=== PATIENT | male | born 1965 | race African-American/Black ===

== ENCOUNTER → 2018-10-15 | Emergency (ER) | payer OTHER ==
[~2018-10-15] VITALS: Ht 182.9 cm; Wt 81.6 kg
[2018-10-15 16:43] VITALS: BP 143/90
--- NOTE | 2018-10-15 20:54 | Emergency Room Report ---
History of Present Illness General Chief Complaint: Pain Source: Patient Present Illness HPI This patient left prior to evaluation by medical provider. Allergies: Coded Allergies: PENICILLINS (Verified Allergy, Unknown, 10/15/18) Nursing Documentation-[facility] Past Medical History: No History, Except For Physical Exam Vital Signs Date Time Temp Pulse Resp B/P (MAP) Pulse Ox O2 Delivery O2 Flow Rate FiO2 10/15/18 16:36 98.2 95 16 145/92 95 Room Air Medical Decision Making PA Attestation Dr. Mcghee is my supervising Physician whom patient management has been discussed with. ER Course This patient left prior to evaluation by medical provider. Last Vital Signs Date Time Temp Pulse Resp B/P (MAP) Pulse Ox O2 Delivery O2 Flow Rate FiO2 10/15/18 16:43 98.1 78 20 143/90 96 Room Air Disposition: LEFT W/OUT BEING SEEN Condition: Unknown Referrals: [facility],REFERRING (PCP) Sapna Mason Oct 15, 2018 20:54
== END | disposition left against medical advice (07) ==
LOC: EMR 17:09
DX: M25.551 Pain in right hip (principal); Z53.21 Procedure and treatment not carried out due to patient leaving prior to being seen by health care provider

== ENCOUNTER 2018-11-01 20:09 | Emergency (ER) | payer OTHER ==
[~2018-11-01] VITALS: Ht 182.9 cm; Wt 77.1 kg
--- NOTE | 2018-11-01 20:40 | NUR ---
ER Nurse Note: Pt walked in c/o right hip to groin pain d/t fall 10/26. Pt stated he was drank the entire bottle of alcohol and shortly after, he fell. Pt seth a bruised eye and hip from the fall. No skin breakdown. Pt ambulatory with stable gait. ERMD at pt side; will continue to [facility].
[2018-11-01 20:45] VITALS: BP 139/79
--- NOTE | 2018-11-01 21:19 | Emergency Room Report ---
History of Present Illness General Chief Complaint: Pelvic Pain Source: Patient Present Illness HPI Patient is a 53-year-old male presented after increased right-sided pelvic pain. Patient reports having worsening pain after a recent fall approximately 1 week ago. He reports having persistent pain to the area. Patient states that he has been drinking heavily over the past several weeks. He reports having hit right side of his head and has some pain to the right side of his face. Patient reports having moderate pain. He continues to drink alcohol heavily. Allergies: Coded Allergies: PENICILLINS (Verified Allergy, Unknown, 10/15/18) Patient History Past Medical History: see triage record Reviewed Nursing Documentation: PMH: Agreed; PSxH: Agreed Nursing Documentation-PMH Past Medical History: No History, Except For Review of Systems All Other Systems: negative except mentioned in HPI Physical Exam Vital Signs Date Time Temp Pulse Resp B/P (MAP) Pulse Ox O2 Delivery O2 Flow Rate FiO2 11/01/18 20:37 97.5 104 16 139/79 94 Room Air Sp02 EP Interpretation: reviewed, normal General Appearance: normal inspection, well appearing, no apparent distress, alert, GCS 15 Head: atraumatic Eyes: bilateral eye other - right eyelid bruising ENT: normal ENT inspection, hearing grossly normal, normal voice Neck: normal inspection, full range of motion, supple, no bony tend Respiratory: normal inspection, lungs clear, normal breath sounds, no respiratory distress, no retraction, no wheezing Cardiovascular #1: regular rate, rhythm, no edema Gastrointestinal: normal inspection, normal bowel sounds, non tender, soft, no guarding, no hernia Genitourinary: no CVA tenderness Musculoskeletal: normal inspection, back normal, normal range of motion Neurologic: normal inspection, alert, oriented x3, responsive, ship joiner III-XII nml as tested, speech normal Psychiatric: normal inspection, judgement/insight normal, mood/affect normal Skin: normal inspection, normal color, no rash Medical Decision Making Diagnostic Impression: Primary Impression: Alcohol abuse Additional Impression: Pelvic pain ER Course Patient presented for right-sided pelvic pain. Differential diagnosis include was not limited to fracture, contusion, dislocation, appendicitis among others. X-ray imaging of the pelvis showed no evidence of acute fracture 1 view interpreted by me indication pain. Patient was given Ativan for mild anxiety. Patient noted to be ambulatory without assistance. Patient advised to follow- up with his primary care physician for recheck. Patient was advised alcohol cessation. Patient does not appear to require any imaging of his head at this time. Has a nonfocal neurologic exam. Last Vital Signs Date Time Temp Pulse Resp B/P (MAP) Pulse Ox O2 Delivery O2 Flow Rate FiO2 11/01/18 20:37 97.5 104 16 139/79 94 Room Air Status: improved Disposition: HOME, SELF-CARE Condition: Stable Scripts Acetaminophen (Acetaminophen) 500 Mg Tablet 500 MG PO Q4HR, #30 TAB Prov: Song Mcghee MD 11/01/18 Song Mcghee MD Nov 01, 2018 21:19
[2018-11-01] MEDS ORDERED: Acetaminophen 500mg (ES) tab ORAL ONE (21:30)
[2018-11-01] MEDS ORDERED: ACETAMINOPHEN500 M5 PO (22:23)
[2018-11-01 22:25] VITALS: BP 136/78
--- NOTE | 2018-11-01 22:25 | NUR ---
ER Nurse Note: Pt seen, treated, medically cleared for discharge by ERMD. All orders completed per ERMD orders. Discharge instructions and prescriptions given with repeat verbalization by pt. Instructed pt to follow up with primary care physican within one week. Pt a&ox4, VSS, no signs of distress. ID band removed; left with steady gait via own transportation.
[2018-11-01] MEDS ORDERED: LORazepam 1mg tab ORAL ONE (22:30)
--- NOTE | 2018-11-02 12:27 | Diagnostic Imaging Report ---
Indication: Pelvic pain Technique: One view of the pelvis Comparison: none Findings: There is chronic deformity of the left superior and inferior pubic rami, likely related to prior trauma. Less extensive fracture deformities of the right superior and inferior pubic rami are demonstrated. No acute fractures. No dislocations. Degenerative proliferative changes of the anterior iliac bones are noted. The joint spaces are preserved Impression: No acute process
== END 2018-11-01 22:25 | disposition home or self-care (01) ==
LOC: EMR 21:36
DX: F10.10 Alcohol abuse, uncomplicated (principal); R10.2 Pelvic and perineal pain; Z88.0 Allergy status to penicillin
CPT/HCPCS: 72170; 99283